=== PATIENT | male | born 1960 | race Caucasian/White ===

== ENCOUNTER 2019-10-31 12:06 | Emergency (ER) | payer MEDICARE, OTHER ==
[~2019-10-31] VITALS: Ht 154.9 cm; Wt 75.0 kg
[2019-10-31] MEDS ORDERED: normal saline 1000ML IV soln IVB ONE (12:45)
[2019-10-31] MEDS ORDERED: morphine 4 MG/ML inj SYRINge IV PRN (12:45)
[2019-10-31] MEDS ORDERED: tamsulosin 0.4mg capsule PO SCH (12:45)
[2019-10-31] MEDS ORDERED: ondansetron/PF 4mg/2ml inj IV ONE (12:45)
[2019-10-31] MEDS ORDERED: ketorolac tromethamine 15mg/ml inj. IV ONE (12:45)
[2019-10-31 13:12] LABS: BASOPHILS % (AUTO) 0.3 % (0-1); EOSINOPHILS % (AUTO) 0.2 % (0-6); HEMATOCRIT 46.5 % (42.0-52.0); HEMOGLOBIN 16.3 g/dl (14.0-17.9); LYMPHOCYTES # (AUTO) 1.5 X10'3 (1.1-4.8); LYMPHOCYTES % (AUTO) 17.4 % (21-51); MEAN CORPUSCULAR HEMOGLOBIN 30.8 PG (27.0-31.0); MEAN CORPUSCULAR VOLUME 87.9 FL (78-98); MEAN PLATELET VOLUME 10.3 FL (7.4-10.4); MONOCYTES # (AUTO) 0.6 X10'3 (0-0.9); MONOCYTES % (AUTO) 6.8 % (2-12); NEUTROPHILS # (AUTO) 6.3 X10'3 (1.8-7.7); NEUTROPHILS % (AUTO) 75.3 % (42-75); PLATELET COUNT 132 X10'3 (140-440); RED CELL DISTRIBUTION WIDTH 13.2 % (11.5-14.5); WHITE BLOOD COUNT 8.4 X10'3 (4.5-11.0)
[2019-10-31 13:27] LABS: ALANINE AMINOTRANSFERASE 23 U/L (12-78); ALBUMIN 3.9 G/DL (3.4-5.0); ALBUMIN/GLOBULIN RATIO 1.2 (1.1-1.5); ALKALINE PHOSPHATASE 89 IU/L (46-116); ANION GAP 10 (8-16); ASPARTATE AMINO TRANSFERASE 13 U/L (10-37); BILIRUBIN,TOTAL 0.7 MG/DL (0.1-1.0); BLOOD UREA NITROGEN 13 MG/DL (7-18); BUN/CREATININE RATIO 15.1 (5.4-32.0); CALCIUM 8.3 MG/DL (8.5-10.1); CHLORIDE 103 MMOL/L (99-107); CREATININE 0.86 MG/DL (0.60-1.10); GLUCOSE 123 MG/DL (70-104); LIPASE 65 U/L (73-393); POTASSIUM 3.6 MMOL/L (3.5-5.1); SODIUM 138 MMOL/L (135-145); TOTAL CARBON DIOXIDE 25.1 MMOL/L (24-32); TOTAL PROTEIN 7.2 G/DL (6.4-8.2); eGFR 90 ML/MIN
[2019-10-31 14:08] LABS: CLARITY,URINE CLEAR (Clear); COLOR,URINE STRAW (Yellow); GLUCOSE, URINE NEGATIVE (Neg); KETONES,URINE NEGATIVE (Neg); LEUKOCYTE ESTERASE ,URINE NEGATIVE (Neg); NITRITES, URINE NEGATIVE (Neg); OCCULT BLOOD,URINE NEGATIVE (Neg); PROTEIN,URINE NEGATIVE (Neg); UROBILINOGEN,URINE 0.2 E.U/dL (0.2-1.0)
[2019-10-31 14:11] LABS: UA COLLECTION TYPE URINAL
[2019-10-31] MEDS ORDERED: ONDA8TAB13 PO (14:28)
[2019-10-31] MEDS ORDERED: FLO0.4C PO (14:31)
[2019-10-31 14:53] VITALS: BP 130/66
== END 2019-10-31 14:55 | disposition home or self-care (01) ==
LOC: ER 12:08
DX: N50.811 Right testicular pain (principal); N20.0 Calculus of kidney; E11.9 Type 2 diabetes mellitus without complications; F17.200 Nicotine dependence, unspecified, uncomplicated; Z79.899 Other long term (current) drug therapy
CPT/HCPCS: 36415; 80053; 81003; 83690; 85025; 96374; 96375; 99284; J1885; J2270; J2405; J7030; 99283

== ENCOUNTER 2021-06-19 08:41 | Day surgery (SDC) | payer OTHER ==
[2021-06-19] VITALS (8 sets, daily range): BP systolic 119–153; BP diastolic 67–88
[~2021-06-19] VITALS: Ht 154.9 cm; Wt 72.1 kg
[~2021-06-19 08:41] MED LIST: ONDA8TAB13 PO
[2021-06-19] MEDS ORDERED: ceFAZolin/D5W- 1GM premix 50 ML IV ONE (09:15)
[2021-06-19 09:52] LABS: BASOPHILS # (AUTO) 0.1 X10'3 (0-0.2); BASOPHILS % (AUTO) 0.5 % (0-1); EOSINOPHILS # (AUTO) 0.1 X10'3 (0-0.9); HEMATOCRIT 50.9 % (42.0-52.0); HEMOGLOBIN 17.4 g/dl (14.0-17.9); LYMPHOCYTES # (AUTO) 2.2 X10'3 (1.1-4.8); LYMPHOCYTES % (AUTO) 23.3 % (21-51); MEAN CORPUSCULAR HEMOGLOBIN 30.6 PG (27.0-31.0); MEAN CORPUSCULAR HGB CONC 34.1 g/dL (33.0-36.5); MEAN CORPUSCULAR VOLUME 89.8 FL (78-98); MEAN PLATELET VOLUME 10.2 FL (7.4-10.4); MONOCYTES # (AUTO) 0.7 X10'3 (0-0.9); MONOCYTES % (AUTO) 7.1 % (2-12); NEUTROPHILS # (AUTO) 6.4 X10'3 (1.8-7.7); NEUTROPHILS % (AUTO) 68.1 % (42-75); PLATELET COUNT 155 X10'3 (140-440); RED BLOOD COUNT 5.67 X10'6 (4.70-6.10); RED CELL DISTRIBUTION WIDTH 13.8 % (11.5-14.5); WHITE BLOOD COUNT 9.5 X10'3 (4.5-11.0)
[2021-06-19] MEDS ORDERED: ALOG25TA2 (10:49)
[2021-06-19] MEDS ORDERED: [UNRECOGNIZED DRUG - CODE] PO (10:52)
[2021-06-19] MEDS ORDERED: FINA5TAB11 PO (10:54)
[2021-06-19] MEDS ORDERED: [UNRECOGNIZED DRUG - CODE] (10:57)
[2021-06-19] MEDS ORDERED: INSU100V12 SQ (10:58)
[2021-06-19] MEDS ORDERED: METF-950 (10:59)
[2021-06-19] MEDS ORDERED: OXYC-658 PO (11:00)
[2021-06-19] MEDS ORDERED: LACT1CAP77 (11:02)
[2021-06-19] MEDS ORDERED: diphenhydrAMINE 50 mg/ml inj ONE (12:45)
[2021-06-19] MEDS ORDERED: heparin 1,000 UNITS/NS 500ml 500 ML ONE (12:46)
[2021-06-19] MEDS ORDERED: fentaNYL/PF 50MCG/1 ML 2ML syringe ONE ×2 (12:46→13:16)
[2021-06-19] MEDS ORDERED: LIDOcaine 1%/PF 5ML 10 MG/ML VIAL ONE (12:46)
[2021-06-19] MEDS ORDERED: iohexol 300mg/ml 100ml inj. ONE (12:46)
[2021-06-19] MEDS ORDERED: midazolam 1 mg/ML 2ml injection ONE ×3 (12:46→13:39)
[2021-06-19] MEDS ORDERED: iohexol 300 MG/1 ML 50ml polymer ONE (12:55)
== END 2021-06-19 16:45 | disposition home or self-care (01) ==
LOC: SSTAY O 08:41
PROVIDERS: ATTEND Radiology Vascular & Interventional Radiology
DX: S22.080A Wedge compression fracture of T11-T12 vertebra, initial encounter for closed fracture (principal); M54.6 Pain in thoracic spine; E11.9 Type 2 diabetes mellitus without complications; F17.210 Nicotine dependence, cigarettes, uncomplicated; Z72.89 Other problems related to lifestyle; Z79.899 Other long term (current) drug therapy; Z79.84 Long term (current) use of oral hypoglycemic drugs; Z79.01 Long term (current) use of anticoagulants; Z86.73 Personal history of transient ischemic attack (TIA), and cerebral infarction without residual deficits; X58.XXXA Exposure to other specified factors, initial encounter; Y93.89 Activity, other specified; Y92.89 Other specified places as the place of occurrence of the external cause; Y99.8 Other external cause status
CPT/HCPCS: 22513; 36415; 82948; 85025; 85610; 99152; 99153; C1713; J1200; J1644; J2250; J3010; Q9967

== ENCOUNTER 2024-06-19 12:07 | Outpatient (CLI) | payer MEDICARE, MEDICAID ==
[~2024-06-19 12:07] MED LIST changes: +ALOG25TA2; +FINA5TAB11 PO; +INSU100V12 SQ; +LACT1CAP77; +METF-1203; +ONDA-245 PO; -ONDA8TAB13 PO; +OXYC-658 PO; +[UNRECOGNIZED DRUG - CODE]; +[UNRECOGNIZED DRUG - CODE] PO
== END 2024-06-19 23:59 | disposition home or self-care (01) ==
LOC: RAD 12:07
PROVIDERS: ATTEND Physician Assistant Medical
DX: M51.16 Intervertebral disc disorders with radiculopathy, lumbar region (principal); M54.50 Low back pain, unspecified; M47.26 Other spondylosis with radiculopathy, lumbar region; M48.061 Spinal stenosis, lumbar region without neurogenic claudication
CPT/HCPCS: 72131

== ENCOUNTER 2024-07-20 09:54 | Outpatient (CLI) | payer MEDICAID, OTHER | END 2024-07-20 23:59 | disposition home or self-care (01) | LOC: RAD 09:54 | PROVIDERS: ATTEND Chiropractor | DX: M47.816 Spondylosis without myelopathy or radiculopathy, lumbar region (principal); Z98.1 Arthrodesis status | CPT/HCPCS: 72040; 72070; 72100 ==